=== PATIENT | female | born 1965 | race Caucasian/White ===

== ENCOUNTER → 2016-06-03 | Outpatient (CLI) | payer OTHER ==
[~2016-06-03] VITALS: Ht 157.5 cm; Wt 83.6 kg
[~2016-06-03] MED LIST: AMLO-110 PO; ANAS1TAB19 PO; CALC-5 PO; LEVO25TA5 PO; MAGN400T6 PO; MULT-506 PO; ZINC1CAP PO
[2016-06-03 16:37] VITALS: BP 130/86; PULSE 87; Ht 157.5 cm; Wt 83.6 kg
== END | disposition home or self-care (01) ==
LOC: C.NEUR 15:56
PROVIDERS: ATTEND Internal Medicine Pulmonary Disease
DX: G47.30 Sleep apnea, unspecified (principal)

== ENCOUNTER → 2016-06-05 | Outpatient (CLI) | payer OTHER ==
--- NOTE | 2016-06-05 12:39 | MAMMOGRAPHY REPORT ---
UNILATERAL LEFT DIGITAL DIAGNOSTIC MAMMOGRAM TOMOSYNTHESIS WITH CAD: 06/05/2016 CLINICAL HISTORY: 51-year-old woman with a personal history of left breast cancer status post lumpec lita and radiation in 2014, presents for follow-up in the left breast. TECHNIQUE: Left CC and MLO 2-D digital and tomosynthesis images, spot magnification left CC and ML v iews were obtained. Current study was also evaluated with a Computer Aided Detection (CAD) system. COMPARISON: Comparison is made to exams dated: 12/06/2015 ultrasound, 12/06/2015 mammogram, 06/05/2015 ma mmogram, and 10/20/2014 mammogram - [facility]. BREAST COMPOSITION: There are scattered areas of fibroglandular density in the left breast. FINDINGS: There is decreasing trabecular edema but persistent skin thickening of the left breast. There is expected architectural distortion and associated surgical clips in the 6:00 anterior left b reast, at the site of prior lumpectomy. There are newly visualized coarse dystrophic calcifications are the surgical site. No new suspicious mass, architectural distortion or cluster of microcalcifi cations is seen. IMPRESSION: ACR-BI-RADS CATEGORY 3: PROBABLY BENIGN Evolving postoperative changes in the left breast, without mammographic evidence of malignancy. Adv ise follow-up in 6 months for bilateral diagnostic mammography. These results and recommendations w ere discussed with the patient at the time of the exam. Approximately 10% of breast cancers are not detected with mammography. A negative mammographic repor t should not delay biopsy if a clinically suggestive mass is present. Theresa White M.D. ay/:06/05/2016 12:15:02 Area Counselor: Jo COHEN(R)(M), [facility] letter sent: Personal History 3 BI-RADS Code: ACR-BI-RADS Category 3: Probably Benign
== END | disposition home or self-care (01) ==
LOC: C.MAMM 10:29
PROVIDERS: ATTEND Radiology Radiation Oncology
DX: Z08 Encounter for follow-up examination after completed treatment for malignant neoplasm (principal); Z85.3 Personal history of malignant neoplasm of breast; Z92.3 Personal history of irradiation

== ENCOUNTER → 2016-06-24 | Outpatient (CLI) | payer OTHER ==
[2016-06-24 10:56] LABS: BASO % 0.2 %; BASO ABS # 0.01 K/uL (0-0.2); COMPLETE YES; HEMATOCRIT 40.7 % (37-47); IG% 0.2 %; LYMPH % 34.3 %; LYMPH ABS # 2.02 K/uL (1.2-3.4); MEAN CELL VOLUME 92.9 fL (80-100); MEAN CORPUSCULAR HEMOGLOBIN 30.8 pg (25-34); MEAN CORPUSCULAR HGB CONC 33.2 g/dl (32-36); MEAN PLATELET VOLUME 9.6 fL (7.4-10.4); MONO % 6.3 %; PLATELET COUNT 224 K/uL (130-400); RED BLOOD COUNT 4.38 M/uL (4.2-5.4); WHITE BLOOD COUNT 5.89 K/uL (4.8-10.8)
[2016-06-24 11:16] LABS: BLOOD UREA NITROGEN 14 mg/dl (7-18); CREATININE 0.92 mg/dl (0.60-1.20); GLUCOSE 108 mg/dl (70-99)
[2016-06-24 11:17] LABS: ALT/SGPT 38 U/L (12-78); AST/SGOT 18 U/L (15-37); BUN/CREATININE RATIO 15.3 (10-20); CALCIUM 9.4 mg/dl (8.5-10.1); CARBON DIOXIDE 33 mmol/L (21-32); CHLORIDE 105 mmol/L (98-107); POTASSIUM 3.9 mmol/L (3.5-5.1); SODIUM 143 mmol/L (136-145)
[2016-06-24 11:24] LABS: ALB/GLOB RATIO 1.1 (0.9-2); ALKALINE PHOSPHATASE 107 U/L (45-117)
== END | disposition home or self-care (01) ==
LOC: C.LABBC 07:31
PROVIDERS: ATTEND Nurse Practitioner Family
DX: C50.812 Malignant neoplasm of overlapping sites of left female breast (principal)

== ENCOUNTER → 2016-10-23 | Outpatient (CLI) | payer OTHER ==
[2016-10-23 14:30] VITALS: BP 145/73; PULSE 44; TEMP 37; O2SAT 97
--- NOTE | 2016-10-23 16:34 | Radiation Oncology Follow-Up ---
Radiation Oncology Follow-Up Date of Visit Oct 23, 2016. (Candy Stewart PA-C) Reason For Visit Annual follow-up (Candy Stewart PA-C) Radiation Completion Date 03/08/15 (Candy Stewart PA-C) Diagnosis (1) Malignant neoplasm of central portion of left female breast Status: Acute Onset Date: 11/10/2014 Histology Subtype: ductal Stage: l (A) Permanent Comment: DIAGNOSIS: Left breast, invasive ductal carcinoma, grade 1, ER/CO positive, Her2 negative, [id number], stage IA Abnormal left breast mammogram 10/20/2014 Status post ultrasound-guided biopsy 11/10/2014 Status post lumpectomy and sentinel lymph node biopsy 12/16/2014 Status post completion of radiation therapy 03/08/2015 received 6600 cGy Last Edited By: Candy Stewart on Mar 13, 2015 15:24 (Candy Stewart PA-C) History of Present Illness Ms. Barahona is a 49-year-old postmenopausal female who recently presented with an abnormal mammogram on 10/20/2014 which revealed a new spiculated mass in the left subareolar breast. Unilateral left diagnostic mammogram and ultrasound was completed on 11/03/2014 which revealed a spiculated 1.3 cm mass in the left subareolar breast and ultrasound revealed a a regular hypoechoic solid mass measuring 1.3 cm. No enlarged lymph nodes were found in the axilla. She underwent ultrasound-guided biopsy on 11/10/2014 which revealed invasive ductal carcinoma, grade 1, no lymphovascular space invasion or DCIS that was estrogen receptor and progesterone receptor positive and HER-2 negative. She was referred to Dr. Luo who recommended breast conserving therapy in the patient underwent a lumpectomy and sentinel lymph node biopsy on 12/16/2014 which revealed a 2.0 cm invasive ductal carcinoma, grade 1 with no lymphovascular space invasion, no perineural invasion or DCIS. The margins were all negative with the closest margin being 7 mm. The sentinel lymph node was negative. Following surgery, Dr. Luo discussed the role of anti-hormonal therapy and they are in the process of determining whether or not she will receive tamoxifen or anastrozole. We are now seeing her in consultation for discussion of adjuvant radiation therapy. Status post completion of radiation therapy 03/18/2015 received 6600 cGy (Candy Stewart PA-C) Interim History She's been doing well over the past year. She denies any changes to her breast. She denies any masses or tenderness and no change in the axilla. She is up-to-date on mammography. She reported some intermittent cramping sensation in both of her slides at times to nursing. Nursing had also noted a decreased pulse at 44. The discomfort was reviewed with Dr. Gardiner and this is in the lower abdomen. This feels like a menstrual cramping. There is been no vaginal discharge or abnormal bleeding. To note she did recently undergo routine colonoscopy 02/26/2016. This was negative other than nonbleeding internal hemorrhoids. (Candy Stewart PA-C) Allergies Coded Allergies: No Known Allergies (Verified , 02/26/16) Home Medications Scheduled Amlodipine (Norvasc), 5 MG PO QPM Anastrozole (Arimidex), 1 TAB PO QPM Calcium-Magnesium W/ Vitamin D (Calcium 500), 1,000 MG PO DAILY Levothyroxine Sodium (Levothyroxine Sodium), 1 TAB PO QAM Magnesium Oxide (Mag-Ox), 400 MG PO DAILY Multivitamin (Multivitamin), 1 TAB PO QPM Zinc Sulfate (Zinc Sulfate), 220 MG PO DAILY Review of Systems Gastrointestinal: Symptoms: WNL Oral: Symptoms: No Problems Respiratory: Symptoms: WNL Urinary: Symptoms: WNL Skin: Symptoms: No Problems Breast: Right Upper Arm Measurement: 37.5 Right Mid Arm Measurement: 29.5 Right Wrist Measurement: 17.5 Left Upper Arm Measurement: 37.0 Left Mid Arm Measurement: 28.0 Left Wrist Measurement: 18.0 Arm Dominence: Right (Candy Stewart PA-C) Physical Exam Vital Signs Date Time Temp Pulse Resp B/P (MAP) Pulse Ox O2 Delivery O2 Flow Rate FiO2 10/23/16 14:30 37.0 44 16 145/73 97 Fatigue: None General Appearance: no apparent distress Eyes: normal inspection, EOMI ENT: normal ENT inspection, hearing grossly normal Neck: no adenopathy, thyroid normal Respiratory/Chest: lungs clear, no respiratory distress, no accessory muscle use Breast: Breast examination reveals well-healed incisions of the left breast. There are no masses or tenderness no axillary adenopathy. She has no skin retractions or nipple changes. Using the [place] score cosmesis she has an excellent outcome. The right breast showed no masses or tenderness no axillary adenopathy. Cardiovascular: regular rate, rhythm, no gallop, no murmur, + extra beats, + pertinent finding (pulse taking by electronic monitor showed 44. Manually the pulse was 60) Extremities: no pedal edema Neurologic/Psychiatric: no motor/sensory deficits, alert, normal mood/affect Skin: warm/dry (Candy Stewart PA-C) Additional Studies Patient: LOU BARAHONA [facility] Rec: [id number] Address1: [address] Address2: Acct ID: [id number] Date: 1965 Sex: F Ref Phy: Ras Luo M.D. Att Phy: Candy Stewart PA-C Parris Phy: Daquan Sparrow III, POLISHING WHEEL REPAIRER Inter Phy: Theresa White MD [facility] Zip: [place] [address] SC: C.MAMM Report #: [id number] Paint Roller Winder: TIM Diagnosis: LEFT 6 MO F/U Service Date: 06/05/16 MNE: [id number] Ordering Dr: Candy Stewart PA-C CC: Candy Stewart PA-C CONF: DICTATED BY: Theresa White MD MAMMOGRAPHY REPORT UNILATERAL LEFT DIGITAL DIAGNOSTIC MAMMOGRAM TOMOSYNTHESIS WITH CAD: 06/05/2016 CLINICAL HISTORY: 51-year-old woman with a personal history of left breast cancer status post lumpectomy and radiation in 2014, presents for follow-up in the left breast. TECHNIQUE: Left CC and MLO 2-D digital and tomosynthesis images, spot magnification left CC and ML views were obtained. Current study was also evaluated with a Computer Aided Detection (CAD) system. COMPARISON: Comparison is made to exams dated: 12/06/2015 ultrasound, 12/06/2015 mammogram, 06/05/2015 mammogram, and 10/20/2014 mammogram - [facility]. BREAST COMPOSITION: There are scattered areas of fibroglandular density in the left breast. FINDINGS: There is decreasing trabecular edema but persistent skin thickening of the left breast. There is expected architectural distortion and associated surgical clips in the 6:00 anterior left breast, at the site of prior lumpectomy. There are newly visualized coarse dystrophic calcifications are the surgical site. No new suspicious mass, architectural distortion or cluster of microcalcifications is seen. IMPRESSION: ACR-BI-RADS CATEGORY 3: PROBABLY BENIGN Evolving postoperative changes in the left breast, without mammographic evidence of malignancy. Advise follow-up in 6 months for bilateral diagnostic mammography. These results and recommendations were discussed with the patient at the time of the exam. Approximately 10% of breast cancers are not detected with mammography. A negative mammographic report should not delay biopsy if a clinically suggestive mass is present. Theresa White M.D. ay/:06/05/2016 12:15:02 Insulation Estimator: Jo WYMAN)(Ramez), [facility] letter sent: Personal History 3 BI-RADS Code: ACR-BI-RADS Category 3: Probably Benign Dictated by: Theresa White MD Signed by: Theresa White MD (Candy Stewart PA-C) Assessment & Plan Plan: Continue scheduled mammography. She is due for mammogram in November. Continue follow-up with Dr. Rodríguez and her primary care provider. It was recommended that she follow-up with her primary care physician or varnish blender in regards to the lower abdominal discomfort that she has been having. I discussed with her the possible ectopy. She is on blood pressure medication. She denies palpitations. We asked her to return to our office in 1 year. She may call if she has any questions or concerns in the interim. (Candy Stewart PA-C) I agree with note created by Candy Stewart PA-C. I reviewed the patient's chart and information with her. I have examined and evaluated the patient. I reviewed relevant clinical information and answered the patient's and/or family' s questions. (Veeral. Gardiner MD) Total Time In Follow-Up I spent 20 minutes speaking to the patient and performed an examination. I spent 15 minutes reviewing information in completing this note. AK (Candy Stewart PA-C) I spent 15 minutes examining and counseling the patient. (Veeral. Gardiner MD) Copy To Russ Rodríguez D.O.; Daquan Sparrow III, CRNP Problem Qualifiers (1) Malignant neoplasm of central portion of left female breast: Estrogen receptor status: positive Qualified Codes: C50.112 - Malignant neoplasm of central portion of left female breast; Z17.0 - Estrogen receptor positive status [ER+]
== END | disposition home or self-care (01) ==
LOC: C.ONC 14:23
PROVIDERS: ATTEND Physician Assistant Medical
DX: Z08 Encounter for follow-up examination after completed treatment for malignant neoplasm (principal); Z92.3 Personal history of irradiation; Z85.3 Personal history of malignant neoplasm of breast

== ENCOUNTER → 2016-12-06 | Outpatient (CLI) | payer OTHER ==
--- NOTE | 2016-12-06 15:49 | MAMMOGRAPHY REPORT ---
BILATERAL DIGITAL DIAGNOSTIC MAMMOGRAM TOMOSYNTHESIS WITH CAD: 12/06/2016 CLINICAL HISTORY: History of left breast cancer status post lumpectomy November 2014 as well as radi ation therapy. The patient reports no current complaints. TECHNIQUE: Breast tomosynthesis in addition to standard 2D mammography was performed. Current study was also evaluated with a Computer Aided Detection (CAD) system. Bilateral CC and MLO 2-D and tomosy nthesis images and spot magnification left CC and ML views were obtained. COMPARISON: Comparison is made to exams dated: 06/05/2016 mammogram, 12/06/2015 ultrasound, 12/06/2015 jules mogram, 06/05/2015 mammogram, 11/10/2014 mammogram, and 11/10/2014 ultrasound biopsy - [facility]. BREAST COMPOSITION: There are scattered areas of fibroglandular density in both breasts. FINDINGS: There are stable post surgical changes in the left breast from prior lumpectomy, including stable density, architectural distortion, and surgical clips at the lumpectomy bed. A linear scar ma rker denotes a scar on the left medial breast. Spot magnification views of the lumpectomy bed again demonstrate coarse benign dystrophic calcifications, without suspicious masses or calcifications note d at the lumpectomy bed. Diffuse left breast skin thickening is not significantly changed and is lik jackie related to prior radiation therapy. The remainder of both breasts are stable compared to prior exams, without suspicious masses, calcific ations, or areas of architectural distortion noted. IMPRESSION: ACR BI-RADS CATEGORY 2: BENIGN Stable post treatment changes in the left breast, without mammographic evidence of malignancy in eith er breast. A 1 year screening mammogram is recommended. The patient has been verbally notified of t he results. Approximately 10% of breast cancers are not detected with mammography. A negative mammographic report should not delay biopsy if a clinically suggestive mass is present. Uzma Ruiz M.D. /:12/06/2016 13:59:33 Toy Parts Former Supervisor: Christina WYMAN)(Ramez), [facility] letter sent: Normal 1/2 BI-RADS Code: ACR BI-RADS Category 2: Benign
== END | disposition home or self-care (01) ==
LOC: C.MAMM 13:31
PROVIDERS: ATTEND Physician Assistant Medical
DX: Z85.3 Personal history of malignant neoplasm of breast (principal); Z08 Encounter for follow-up examination after completed treatment for malignant neoplasm; Z98.890 Other specified postprocedural states; Z92.3 Personal history of irradiation

== ENCOUNTER → 2016-12-10 | Outpatient (CLI) | payer OTHER ==
[2016-12-10 11:19] LABS: BASO % 0.2 %; BASO ABS # 0.01 K/uL (0-0.2); COMPLETE YES; EOS % 2.2 %; HEMATOCRIT 40.8 % (37-47); IG% 0.2 %; LYMPH % 27.5 %; LYMPH ABS # 1.77 K/uL (1.2-3.4); MEAN CELL VOLUME 94.4 fL (80-100); MEAN CORPUSCULAR HEMOGLOBIN 30.8 pg (25-34); MEAN CORPUSCULAR HGB CONC 32.6 g/dl (32-36); MEAN PLATELET VOLUME 9.2 fL (7.4-10.4); MONO % 7.9 %; PLATELET COUNT 210 K/uL (130-400); RED BLOOD COUNT 4.32 M/uL (4.2-5.4); WHITE BLOOD COUNT 6.43 K/uL (4.8-10.8)
[2016-12-10 11:37] LABS: ALT/SGPT 31 U/L (12-78); BLOOD UREA NITROGEN 9 mg/dl (7-18); BUN/CREATININE RATIO 13.1 (10-20); CALCIUM 9.3 mg/dl (8.5-10.1); CARBON DIOXIDE 29 mmol/L (21-32); CHLORIDE 104 mmol/L (98-107); CHOLESTEROL 165 mg/dl (0-200); ESTIMATED AVERAGE GLUCOSE 126 mg/dl; GLUCOSE 126 mg/dl (70-99); HA1C FLAG Normal (Normal); MAGNESIUM 2.2 mg/dl (1.8-2.4); SODIUM 139 mmol/L (136-145); TRIGLYCERIDES 182 mg/dl (0-150); VERY LOW DENSITY LIPOPROT CALC 36 mg/dl
[2016-12-10 11:45] LABS: ALB/GLOB RATIO 1.1 (0.9-2); ALKALINE PHOSPHATASE 108 U/L (45-117); AST/SGOT 25 U/L (15-37); FERRITIN 115.1 ng/ml (8.0-388.0); HDL CHOLESTEROL 41 mg/dl; LDL CHOLESTEROL CALCULATED 88 mg/dl
[2016-12-10 11:50] LABS: RATIO 6.6 mcg/mg (0-30.0)
== END | disposition home or self-care (01) ==
LOC: C.LABBC 07:41
PROVIDERS: ATTEND Nurse Practitioner Family
DX: E88.81 Metabolic syndrome and other insulin resistance (principal); E03.9 Hypothyroidism, unspecified; I10 Essential (primary) hypertension

== ENCOUNTER → 2017-01-21 | Outpatient (CLI) | payer OTHER | END | disposition home or self-care (01) | LOC: C.PAPS 09:44 | PROVIDERS: ATTEND Obstetrics & Gynecology | DX: Z12.4 Encounter for screening for malignant neoplasm of cervix (principal); N95.2 Postmenopausal atrophic vaginitis ==

== ENCOUNTER → 2017-05-27 | Outpatient (CLI) | payer OTHER ==
[2017-05-27 11:03] LABS: ALBUMIN 3.7 gm/dl (3.4-5.0); ALT/SGPT 35 U/L (12-78); BLOOD UREA NITROGEN 11 mg/dl (7-18); CALCIUM 9.1 mg/dl (8.5-10.1); CARBON DIOXIDE 31 mmol/L (21-32); CHOLESTEROL 166 mg/dl (0-200); GLUCOSE 125 mg/dl (70-99); POTASSIUM 3.9 mmol/L (3.5-5.1); SODIUM 139 mmol/L (136-145)
[2017-05-27 11:06] LABS: ALKALINE PHOSPHATASE 105 U/L (45-117); AST/SGOT 23 U/L (15-37); LDL CHOLESTEROL CALCULATED 87 mg/dl; TOTAL PROTEIN 7.5 gm/dl (6.4-8.2)
[2017-05-27 13:07] LABS: HEMOGLOBIN A1C 6.1 % (4.5-5.6)
== END | disposition home or self-care (01) ==
LOC: C.LABBC 07:45
PROVIDERS: ATTEND Nurse Practitioner Family
DX: E88.81 Metabolic syndrome and other insulin resistance (principal); I10 Essential (primary) hypertension; E03.9 Hypothyroidism, unspecified; E55.9 Vitamin D deficiency, unspecified

== ENCOUNTER → 2017-06-13 | Outpatient (CLI) | payer OTHER ==
[~2017-06-13] VITALS: Ht 157.5 cm; Wt 91.9 kg
[2017-06-13 16:20] VITALS: BP 147/89; PULSE 66; Ht 157.5 cm; Wt 91.9 kg
== END | disposition home or self-care (01) ==
LOC: C.NEUR 15:13
PROVIDERS: ATTEND Internal Medicine Pulmonary Disease
DX: G47.30 Sleep apnea, unspecified (principal)

== ENCOUNTER → 2017-10-21 | Outpatient (CLI) | payer OTHER ==
[~2017-10-21] MED LIST changes: -AMLO-110 PO; +AMLO5TAB3 PO; -ANAS1TAB19 PO; +ANAS1TAB59 PO
[2017-10-21 14:39] VITALS: BP 132/86; PULSE 79; TEMP 36.5; O2SAT 97
--- NOTE | 2017-10-21 17:19 | Radiation Oncology Follow-Up ---
Radiation Oncology Follow-Up Date of Visit Oct 21, 2017. Reason For Visit Annual follow-up Radiation Completion Date finished 03-08-2015 Diagnosis (1) Malignant neoplasm of central portion of left female breast Status: Acute Onset Date: 11/10/2014 Histology Subtype: Ductal Stage: l Permanent Comment: DIAGNOSIS: Left breast, invasive ductal carcinoma, grade 1, ER/MD positive, Her2 negative, [id number], stage IA Abnormal left breast mammogram 10/20/2014 Status post ultrasound-guided biopsy 11/10/2014 Status post lumpectomy and sentinel lymph node biopsy 12/16/2014 Status post completion of radiation therapy 03/08/2015 received 6600 cGy Last Edited By: Candy Stewart on Mar 13, 2015 15:24 History of Present Illness Ms. Barahona is a postmenopausal female who presented with an abnormal mammogram on 10/20/2014 which revealed a new spiculated mass in the left subareolar breast. Unilateral left diagnostic mammogram and ultrasound was completed on 11/03/2014 which revealed a spiculated 1.3 cm mass in the left subareolar breast and ultrasound revealed a a regular hypoechoic solid mass measuring 1.3 cm. No enlarged lymph nodes were found in the axilla. She underwent ultrasound-guided biopsy on 11/10/2014 which revealed invasive ductal carcinoma, grade 1, no lymphovascular space invasion or DCIS that was estrogen receptor and progesterone receptor positive and HER-2 negative. She was referred to Dr. Luo who recommended breast conserving therapy in the patient underwent a lumpectomy and sentinel lymph node biopsy on 12/16/2014 which revealed a 2.0 cm invasive ductal carcinoma, grade 1 with no lymphovascular space invasion, no perineural invasion or DCIS. The margins were all negative with the closest margin being 7 mm. The sentinel lymph node was negative. Following surgery, Dr. Luo discussed the role of anti-hormonal therapy and they are in the process of determining whether or not she will receive tamoxifen or anastrozole. We are now seeing her in consultation for discussion of adjuvant radiation therapy. Status post completion of radiation therapy 03/18/2015 received 6600 cGy Interim History She has been doing well over this past year. She is noticed no changes to her breast. She has noted no masses or tenderness and no change of the axilla. She is up-to-date on mammography. Allergies Coded Allergies: No Known Allergies (Verified , 02/26/16) Home Medications Scheduled Amlodipine (Norvasc), 5 MG PO QPM Anastrozole (Arimidex), 1 TAB PO QPM Calcium-Magnesium W/ Vitamin D (Calcium 500), 1,000 MG PO DAILY Levothyroxine Sodium (Levothyroxine Sodium), 1 TAB PO QAM Magnesium Oxide (Mag-Ox), 400 MG PO DAILY Multivitamin (Multivitamin), 1 TAB PO QPM Zinc Sulfate (Zinc Sulfate), 220 MG PO DAILY Review of Systems Gastrointestinal: Symptoms: WNL Oral: Symptoms: No Problems Respiratory: Symptoms: WNL Urinary: Symptoms: WNL Skin: Symptoms: No Problems Breast: Left Wrist Measurement: 17.4 Arm Dominence: Right Patient Cosmetic Evaluation: Excellent Staff Cosmetic Evalaluation: Excellent Physical Exam Vital Signs Date Time Temp Pulse Resp B/P (MAP) Pulse Ox O2 Delivery O2 Flow Rate FiO2 10/21/17 14:39 36.5 79 20 132/86 97 Fatigue: None General Appearance: no apparent distress Eyes: normal inspection, EOMI ENT: normal ENT inspection, hearing grossly normal Neck: no adenopathy, thyroid normal Respiratory/Chest: lungs clear, no respiratory distress, no accessory muscle use Breast: Breast examination reveals well-healed incisions of the left breast. There are no masses or tenderness and no axillary adenopathy. She does have slight edema in the lower inner quadrant area. There is firmness generally to the breast but more so in the area of the incision. There is no telangiectasia. She has no skin retractions. There are no nipple changes. She has no axillary adenopathy. Using the [place] score cosmesis she has a good outcome. The right breast showed no masses or tenderness and no axillary adenopathy. Cardiovascular: regular rate, rhythm, no gallop, no murmur Extremities: no pedal edema Neurologic/Psychiatric: no motor/sensory deficits, alert, normal mood/affect Skin: warm/dry Pain Management Patient Reports Pain: No Side: Bilateral Patient Preferred Pain Scale: 0 - 10 Initial Pain Intensity: 0.0 Pain Management Plan She denies pain therefore requires no pain management. Laboratory Laboratory Results: not applicable Pathology Pathology Results: were reviewed, and pertinent findings noted in HPI Imaging Imaging Studies: were reviewed, and pertinent findings noted below Imaging Comments Patient: LOU BARAHONA [facility] Rec: [id number] Address1: [address] Address2: Acct ID: [id number] Date: 1965 Sex: F Ref Phy: Daquan Sparrow III, CRNP Att Phy: Candy Stewart PA-C Parris Phy: Daquan Sparrow III, CRNP Inter Phy: Uzma Ruiz MD [facility] Zip: [place] [address] SC: C.MAMM Report #: [id number] Groover And Turner: MARIANNA Diagnosis: 6 MO F/U BILATERAL Service Date: 12/06/16 MNE: MAMM1 Ordering Dr: Candy Stewart PA-C CC: Candy Stewart PA-C CONF: DICTATED BY: Uzma Ruiz MD MAMMOGRAPHY REPORT BILATERAL DIGITAL DIAGNOSTIC MAMMOGRAM TOMOSYNTHESIS WITH CAD: 12/06/2016 CLINICAL HISTORY: History of left breast cancer status post lumpectomy November 2014 as well as radiation therapy. The patient reports no current complaints. TECHNIQUE: Breast tomosynthesis in addition to standard 2D mammography was performed. Current study was also evaluated with a Computer Aided Detection (CAD ) system. Bilateral CC and MLO 2-D and tomosynthesis images and spot magnification left CC and ML views were obtained. COMPARISON: Comparison is made to exams dated: 06/05/2016 mammogram, 12/06/2015 ultrasound, 12/06/2015 mammogram, 06/05/2015 mammogram, 11/10/2014 mammogram, and ultrasound [facility]. BREAST COMPOSITION: There are scattered areas of fibroglandular density in both breasts. FINDINGS: There are stable post surgical changes in the left breast from prior lumpectomy, including stable density, architectural distortion, and surgical clips at the lumpectomy bed. A linear scar marker denotes a scar on the left medial breast. Spot magnification views of the lumpectomy bed again demonstrate coarse benign dystrophic calcifications, without suspicious masses or calcifications noted at the lumpectomy bed. Diffuse left breast skin thickening is not significantly changed and is likely related to prior radiation therapy. The remainder of both breasts are stable compared to prior exams, without suspicious masses, calcifications, or areas of architectural distortion noted. IMPRESSION: ACR BI-RADS CATEGORY 2: BENIGN Stable post treatment changes in the left breast, without mammographic evidence of malignancy in either breast. A 1 year screening mammogram is recommended. The patient has been verbally notified of the results. Approximately 10% of breast cancers are not detected with mammography. A negative mammographic report should not delay biopsy if a clinically suggestive mass is present. Uzma Ruiz M.D. ah/:12/06/2016 13:59:33 Brush Clearer Surveying: Christina COHEN(Janice)(Ramez), [facility] letter sent: Normal 1/2 BI-RADS Code: ACR BI-RADS Category 2: Benign Dictated by: Uzma Ruiz MD Signed by: Uzma Ruiz MD Assessment & Plan Plan: Continue with annual mammography. Continue regular follow-up with her primary care provider and medical oncology. She continues on Arimidex. We asked her to return to our office in 1 year. She may call if she has any questions or concerns in the interim. Total Time In Follow-Up I spent 20 minutes speaking to the patient in performing examination. I spent 15 minutes reviewing information and completing this note. AK Copy To Russ Rodríguez D.O.; Daquan Sparrow III, CRNP Problem Qualifiers (1) Malignant neoplasm of central portion of left female breast: Estrogen receptor status: positive Qualified Codes: C50.112 - Malignant neoplasm of central portion of left female breast; Z17.0 - Estrogen receptor positive status [ER+]
== END | disposition home or self-care (01) ==
LOC: C.ONC 14:27
PROVIDERS: ATTEND Physician Assistant Medical
DX: Z08 Encounter for follow-up examination after completed treatment for malignant neoplasm (principal); Z92.3 Personal history of irradiation; Z85.3 Personal history of malignant neoplasm of breast